=== PATIENT | female | born 2000 | race Caucasian/White ===

== ENCOUNTER → 2024-02-04 13:19 | Outpatient (REF) | payer OTHER, SELFPAY ==
[2024-02-05 15:09] LABS: Mumps Virus IgG Positive; Rubeola (Measles) IgG Positive; Varicella Zoster IgG (VZV) Negative
[2024-02-05 20:31] LABS: Rubella Positive
== END ==
LOC: OHS 13:19
PROVIDERS: ATTENDING PHYSICIAN Nurse Practitioner Family
DX: Z23 Encounter for immunization (principal)
CPT/HCPCS: 86735; 86762; 86765; 86787